=== PATIENT | male | born 1980 | race Caucasian/White ===

== ENCOUNTER 2017-05-11 21:51 | Emergency (ER) | END 2017-05-11 22:40 | disposition home or self-care (01) ==

== ENCOUNTER 2017-05-12 19:45 | Emergency (ER) | END 2017-05-12 21:24 | disposition home or self-care (01) ==

== ENCOUNTER 2018-08-04 23:34 | Inpatient (IN) | payer MEDICAID, OTHER ==
[~2018-08-04] VITALS: Ht 165.1 cm; Wt 81.8 kg
[~2018-08-04 23:34] MED LIST: BEN25 PO; CEPH-443 PO; CLIN300C10 PO; HYDR-4011 PO; SULF1TAB31 PO
[2018-08-04 23:40] VITALS: Ht 165.1 cm; Wt 81.8 kg
[2018-08-04] MEDS ORDERED: SOD CHLORIDE 0.9% 1,000 ML IV STA (23:48)
[2018-08-05] MEDS ORDERED: NA BICARBONATE 8.4% 50 ML SYG IV ONE (00:30)
[2018-08-05] MEDS ORDERED: ONDANSETRON 4 MG INJ IV PRN ×2 (03:00→03:30)
[2018-08-05] MEDS ORDERED: ACETAMINOPHEN 325 MG TAB PO PRN ×2 (03:00→03:30)
[2018-08-05] MEDS ORDERED: BISACODYL (EC) 5 MG TAB PO PRN (03:30)
[2018-08-05] MEDS ORDERED: NACL 0.9% 3 ML SYG IV SCH (03:30)
[2018-08-05] MEDS ORDERED: DOCUSATE SODIUM 100 MG CAP PO PRN (03:30)
--- NOTE | 2018-08-05 08:12 | HP ---
Date/Time of Note Date/Time of Note DATE: 08/05/18 TIME: 08:05 Assessment/Plan VTE Prophylaxis SCD applied (from Nsg): Yes Pharmacological prophylaxis: NA/contraindicated Pharm contraindication: low risk/ambulating Lines/Catheters IV Catheter Type (from Nrsg): Saline Lock Assessment/Plan Hospital Course This is a 38-year-old male being admitted to the telemetry floor for observation for: #1 acute encephalopathy: Likely toxic metabolic secondary to polysubstance use. Patient did report the use of Xanax as well as coffee and monster energy drinks. He is more arousable and awake and alert than when he originally was found by his . Will await urine drug screen. CT of the brain is negative for any acute abnormalities. #2 hypernatremia: Likely secondary to acute dehydration. We will put the patient on D5 half-normal saline.. Encourage diet when patient is able. #3 prediabetes: Check hemoglobin A 1C #4 obesity: Check hemoglobin A 1C, lipid panel, TSH #5 DVT GI prophylaxis: SCDs, no GI prophylaxis indicated further treatment strategy will be implemented as per the clinical course. Result Diagram: 08/05/18 0608/05/18 06 Results 24hrs Laboratory Tests Test 08/04/18 23:56 08/04/18 23:57 08/05/18 00:12 08/05/18 01:34 White Blood Count 7.3 Red Blood Count 4.53 L Hemoglobin 13.8 L Hematocrit 39.4 L Mean Corpuscular 87.0 Volume Mean Corpuscular 30.5 Hemoglobin Mean Corpuscular 35.0 Hemoglobin Concen t Red Cell 11.9 Distribution Width Platelet Count 187 Mean Platelet 10.3 Volume Immature 0.300 Granulocytes % Neutrophils % 56.9 Lymphocytes % 34.1 Monocytes % 8.3 Eosinophils % 0.1 Basophils % 0.3 Nucleated Red 0.0 Blood Cells % Immature 0.020 Granulocytes # Neutrophils # 4.1 Lymphocytes # 2.5 Monocytes # 0.6 Eosinophils # 0.0 Basophils # 0.0 Nucleated Red 0.0 Blood Cells # Urine Color SERENITY Urine Clarity SLIGHTLY CLOUDY A Urine pH 6.0 Urine Specific 1.030 [place] Urine Ketones TRACE A Urine Nitrite NEGATIVE Urine Bilirubin NEGATIVE Urine 1+ H Urobilinogen Urine Leukocyte NEGATIVE Esterase Urine Microscopic 0 RBC Urine Microscopic 2 WBC Urine Mucus FEW A Urine Hemoglobin NEGATIVE Urine Glucose NEGATIVE Urine Total 1+ H Protein Sodium Level 142 Potassium Level 3.8 Chloride Level 109 Carbon Dioxide 24 Level Anion Gap 9 Blood Urea 18 Nitrogen Creatinine 0.86 Est Glomerular > 60 Filtrat Rate mL/min Glucose Level 96 Calcium Level 9.6 Total Bilirubin 0.5 Direct Bilirubin 0.00 Indirect 0.5 Bilirubin Aspartate Amino 33 Transf (AST/SGOT) Alanine 27 Aminotransferase (ALT/SGPT) Alkaline 59 Phosphatase Troponin I 0.013 Total Protein 7.9 Albumin 4.7 Globulin 3.20 Albumin/Globulin 1.46 Ratio Salicylates Level < 1.0 L Urine Opiates NEGATIVE Screen Acetaminophen < 10.0 L Level Urine NEGATIVE Barbiturates Urine POSITIVE Amphetamines Screen Urine POSITIVE Benzodiazepines Screen Urine Cocaine NEGATIVE Screen Urine NEGATIVE Cannabinoids Ethyl Alcohol < 10.0 H Level POC Venous 0.8 Lactate Bedside Glucose 87 Test 08/05/18 03:35 08/05/18 06:00 08/05/18 06:01 Lactic Acid Level 1.1 1.2 White Blood Count 5.7 # Red Blood Count 4.52 L Hemoglobin 13.6 L Hematocrit 39.8 L Mean Corpuscular 88.1 Volume Mean Corpuscular 30.1 Hemoglobin Mean Corpuscular 34.2 Hemoglobin Concen t Red Cell 12.0 Distribution Width Platelet Count 172 Mean Platelet 9.9 Volume Immature 0.200 Granulocytes % Neutrophils % 49.5 Lymphocytes % 38.8 Monocytes % 10.6 Eosinophils % 0.7 Basophils % 0.2 Nucleated Red 0.0 Blood Cells % Immature 0.010 Granulocytes # Neutrophils # 2.8 Lymphocytes # 2.2 Monocytes # 0.6 Eosinophils # 0.0 Basophils # 0.0 Nucleated Red 0.0 Blood Cells # Sodium Level 147 H Potassium Level 3.9 Chloride Level 110 Carbon Dioxide 26 Level Anion Gap 11 Blood Urea 18 Nitrogen Creatinine 0.72 Est Glomerular > 60 Filtrat Rate mL/min Glucose Level 90 Hemoglobin A1c 5.4 Calcium Level 8.8 Magnesium Level 2.4 Total Bilirubin 0.7 Direct Bilirubin 0.00 Indirect 0.7 Bilirubin Aspartate Amino 23 Transf (AST/SGOT) Alanine 22 Aminotransferase (ALT/SGPT) Alkaline 59 Phosphatase Total Protein 7.1 Albumin 4.1 Globulin 3.00 Albumin/Globulin 1.36 Ratio Triglycerides 62 Level Cholesterol Level 190 LDL Cholesterol, 136 Calculated HDL Cholesterol 42 Cholesterol/HDL 4.5 Ratio Thyroid 2.710 Stimulating Hormone (TSH) HPI/ROS Admit Date/Time Admit Date/Time Hx of Present Illness Chief complaint: Altered mental status This is a 38-year-old male who was brought in via paramedics for altered mental status. He is accompanied by his . His reports that she saw him on the floor outside of the house near the car/alley almost nonresponsive. She states that she went up to him and he was mumbling and moaning. He had apparently gone out earlier with his friends. She called paramedics and patient was brought to the emergency department. Patient was able to follow minimal commands at that time when he arrived in the emergency department and was able to take his shirt off. He did report to the that he took Xanax. Upon my examination of the patient at the bedside the patient did appear to be more arousable and alert. He reported that he was with his friends and that he was drinking coffee, surrender he drinks, and Xanax. He denies any chest pain or shortness of breath. Denies any head trauma. Denies any headaches. Allergies: NKDA Medications: None ROS Const: As per HPI Eyes : No pain discharge or redness or change in visual acuity ENT: No pain, sore throat, congestion, congestion, dysphagia or discharge Respiratory: No shortness of breath, cough, sputum, wheezing, or pleuritic pain Cardiovascular: No chest pain, palpitation, PND, or edema GI : no change in appetite, abdominal pain, nausea, vomiting, diarrhea, constipation, or change in the color his stool Genitourinary: No dysuria, hematuria, flank pain , discharge or CVA tenderness Musculoskeletal: No joint pain, back pain, neck pain, restricted range of motion in neck or joints Skin: No rash, bruising or hives Neuro: As per HPI Endocrine: No polyuria, polydipsia, temperature intolerance Psych: As per HPI PMH/Family/Social Past Medical History Prediabetes Medications Current Medications Ondansetron HCl (Zofran Inj) 4 mg ER BRIDGE PRN IV NAUSEA/VOMITING; Start 08/05/18 at 03:00; Stop 08/06/18 at 02:59 Acetaminophen (Tylenol Tab) 650 mg ER BRIDGE PRN PO .MILD PAIN 1-3 OR TEMP; Start 08/05/18 at 03:00; Stop 08/06/18 at 02:59 IV Flush (NS 3 ml) 3 ml PER PROTOCOL IV ; Start 08/05/18 at 03:30 Ondansetron HCl (Zofran Inj) 4 mg Q6H PRN IV NAUSEA/VOMITING; Start 08/05/18 at 03:30 Acetaminophen (Tylenol Tab) 650 mg Q6H PRN PO .PAIN 1-3 OR TEMP; Start 08/05/18 at 03:30 Docusate Sodium (Colace) 100 mg Q12H PRN PO .CONSTIPATION; Start 08/05/18 at 03:30 Bisacodyl (Dulcolax) 5 mg DAILY PRN PO .CONSTIPATION; Start 08/05/18 at 03:30 Coded Allergies: No Known Allergy (Unverified , 08/05/18) Past Surgical History Past Surgical Hx: no surgical history Family History Significant Family History: no pertinent family hx Social History Smoking Status: Unknown if ever smoked Drug Use: other (Denies drug use) Exam/Review of Systems Vital Signs Vitals Vital Signs Date Temp Pulse Resp B/P (MAP) Pulse Ox O2 O2 Flow FiO2 Time Delivery Rate 08/05/18 98.1 58 14 108/73 100 Room Air 06:27 (85) Exam Exam General: Patient is currently lying in bed in no acute distress, he is arousable, but he does appear to be slightly altered. HEENT: Atraumatic, normocephalic. The pupils are equal, round and reactive. Extraocular motor are intact Neck: Supple with full range of motion. No rigidity or meningismus Chest: Nontender Lungs: Clear to auscultation bilaterally no crackles rales or wheezing Heart: Normal S1-S2, Regular rhythm and rate. No murmur, S3, or S4 Abdomen: Soft , nontender, nondistended , bowel sounds are present. No guarding no rebound tenderness , No masses or organomegaly. No costovertebral temporal angle mass Extremities: Normal to inspection, no edema no cyanosis Neurologic: Alert x2, arousable cranial nerves II through XII are intact, motor and sensory are intact, strength 5 out of 5 in bilateral upper and lower extremities. Psych: Not responding to any external stimuli. Additional Comments EKG: Sinus bradycardia with T wave inversions in V1 PROCEDURE: CT brain without contrast CLINICAL INDICATION: Altered mental status TECHNIQUE: A CT of the brain was performed utilizing axial sections from the skull base through the vertex without contrast. Sagittal and coronal images were also reformatted. DICOM images are available. One or more of the following dose reduction techniques were used: Automated exposure control, adjustment of the mA and/or kV according to patient size, use of iterative reconstruction technique. The exam CTDIvol = 38.54 mGy and DLP = 634.23 mGy-cm. COMPARISON: None available FINDINGS: No acute intracranial hemorrhage is identified. There is no mass effect or midline shift. No extra-axial fluid collection is seen. The ventricles and sulci are within normal limits for size and configuration. The density of the brain is within normal limits. [place]-white differentiation is preserved. The osseous structures are unremarkable. The mastoid air cells and visualized paranasal sinuses are clear. RPTAT:HIRAJR IMPRESSION: Unremarkable noncontrast CT of the brain. Maxi Valdivia Physician Date Time Electronically viewed and signed by Physician Riana on 08/05/2018 00:37 JR/ CC: LAZARA SALGADO [id number] PROCEDURE: XR Chest. CLINICAL INDICATION: Chest pain. Altered level of consciousness TECHNIQUE: Portable AP view of the chest was obtained. COMPARISON: None. FINDINGS: The cardiomediastinal silhouette is within normal limits. The lungs are clear. There is no evidence for pleural effusion, pneumothorax or pulmonary vascular congestion. The osseous structures are intact with no evidence for acute abnormality. RPTAT:HJJR IMPRESSION: No evidence for acute intrathoracic pathology. Physician Riana Date Time Electronically viewed and signed by Physician Riana on 08/05/2018 00:36 JR/ CC: LAZARA SALGADO [id number] BEBETO CHEN Aug 05, 2018 08:12
[2018-08-05] MEDS ORDERED: DEXTROSE 5%-0.45% NACL 1,000 ML IV SCH (08:30)
--- NOTE | 2018-08-05 13:58 | PDOCDIS ---
Discharge Instructions DIAGNOSIS Discharge Diagnosis Acute encephelopathy from Xanax CONDITION [id number] Patient Condition: [id number] Stable FOLLOW UP/APPOINTMENTS Follow-up Plan Avoid using drugs CLINTON TONY MD Aug 05, 2018 13:58
--- NOTE | 2018-08-05 14:01 | DS ---
Date/Time of Note Date/Time of Note DATE: 08/05/18 TIME: 13:59 Discharge Summary Admission/Discharge Info Admit Date/Time Discharge Date/Time Discharge Diagnosis Acute encephelopathy from Xanax Patient Condition: Stable Hospital Course Patient found to have acute encephelopathy from benzo overdose. He slept this off. Mental status returned to baseline. He denied suicidality. He felt back to normal and requested discharge home. Labs and imaging were unremarkable Home Meds Discontinued Scripts Diphenhydramine Hcl* (Benadryl*) 25 Mg Cap, 25 MG PO Q6, #30 CAP Prov:LAZARA CASTORENA PA-C 05/12/17 Clindamycin Hcl* (Clindamycin Hcl*) 300 Mg Capsule, 300 MG PO TID for 10 Days, #30 CAP Prov:LAZARA CASTORENA PA-C 05/12/17 Hydrocodone/Acetaminophen ([place] 5-325 Tablet) 1 Each Tablet, 1 TAB PO Q6H PRN for PAIN, #30 TAB Prov:ASHLEY PINZON PA-C 05/11/17 Sulfamethoxazole/Trimethoprim* (Bactrim Ds* Tablet) 1 Each Tablet, 1 TAB PO BID, #20 TAB Prov:ASHLEY PINZON PA-C 05/11/17 Cephalexin* (Keflex*) 500 Mg Capsule, 500 MG PO QID for 10 Days, CAP Prov:ASHLEY PINZON PA-C 05/11/17 Follow-up Plan Avoid using drugs Primary Care Provider Care Physician No Primary Pending Labs Laboratory Tests Test 08/04/18 23:56 08/04/18 23:57 08/05/18 00:12 08/05/18 01:34 White Blood 7.3 Count 10^3/ul (4.8-10 .8) Red Blood 4.53 Count 10^6/ul (4.70-6 .10) Hemoglobin 13.8 g/dl (14.0-18.0 ) Hematocrit 39.4 % (42.0-52.0) Mean 87.0 Corpuscular fl (82.0-101.0) Volume Mean 30.5 Corpuscular pg (29.0-33.0) Hemoglobin Mean 35.0 Corpuscular g/dl (32.0-37.0 Hemoglobin Conc ) ent Red Cell 11.9 Distribution % (11.5-14.5) Width Platelet Count 187 10^3/UL (140-41 5) Mean Platelet 10.3 Volume fl (7.4-10.4) Immature 0.300 Granulocytes % % (0.001-0.429) Neutrophils % 56.9 % (39.0-77.0) Lymphocytes % 34.1 % (15.0-51.0) Monocytes % 8.3 % (0.0-11.0) Eosinophils % 0.1 % (0.0-7.0) Basophils % 0.3 % (0.0-2.0) Nucleated Red 0.0 Blood Cells % /100WBC (0.0-0. 0) Immature 0.020 Granulocytes # 10^3/ul (0.0-0. 031) Neutrophils # 4.1 10^3/ul (1.6-7. 5) Lymphocytes # 2.5 10^3/ul (0.8-2. 9) Monocytes # 0.6 10^3/ul (0.3-0. 9) Eosinophils # 0.0 10^3/ul (0.0-0. 5) Basophils # 0.0 10^3/ul (0.0-0. 1) Nucleated Red 0.0 Blood Cells # 10^3/ul (0.0-0. 0) Urine Color SERENITY (YELLOW) Urine Clarity SLIGHTLY CLOUD Y (CLEAR) Urine pH 6.0 (5.0-9.0) Urine Specific 1.030 (1.003-1 [place] .030) Urine Ketones TRACE mg/dL (NEGATIV E) Urine Nitrite NEGATIVE mg/dL (NEGATIV E) Urine NEGATIVE Bilirubin mg/dL (NEGATIV E) Urine 1+ Urobilinogen mg/dL (NEGATIV E) Urine Leukocyte NEGATIVE Yeison/u Esterase l Urine 0 /HPF (0-5) Microscopic RBC Urine 2 /HPF (0-5) Microscopic WBC Urine Mucus FEW /HPF (NONE SEEN) Urine NEGATIVE Hemoglobin mg/dL (NEGATIV E) Urine Glucose NEGATIVE mg/dL (NEGATIV E) Urine Total 1+ Protein mg/dl (NEGATIV E) Sodium Level 142 mmol/L (135-14 4) Potassium 3.8 Level mmol/L (3.5-5. 1) Chloride Level 109 mmol/L (97-110 ) Carbon Dioxide 24 Level mmol/L (21-31) Anion Gap 9 (5-13) Blood Urea 18 Nitrogen mg/dl (7-20) Creatinine 0.86 mg/dl (0.61-1. 24) Est Glomerular > 60 Filtrat mL/min (>60) Rate mL/min Glucose Level 96 mg/dl (70-220) Calcium Level 9.6 mg/dl (8.4-10. 2) Total 0.5 Bilirubin mg/dl (0.2-1.3 ) Direct 0.00 Bilirubin mg/dl (0.00-0. 20) Indirect 0.5 Bilirubin mg/dl (0-1.1) Aspartate Amino 33 Transf (AST/SGO IU/L (15-46) T) Alanine 27 Aminotransferas IU/L (13-69) e (ALT/SGPT) Alkaline 59 Phosphatase IU/L (42-121) Troponin I 0.013 ng/ml (0.000-0 .120) Total Protein 7.9 g/dl (6.1-8.1) Albumin 4.7 g/dl (3.3-4.9) Globulin 3.20 g/dl (1.3-3.2) Albumin/Globuli 1.46 n Ratio Salicylates < 1.0 Level mg/dl (5.0-30. 0) Urine Opiates NEGATIVE (NEGA Screen TIVE) Acetaminophen < 10.0 Level ug/ml (10.0-30 .0) Urine NEGATIVE (NEGA Barbiturates TIVE) Urine POSITIVE (NEGA Amphetamines TIVE) Screen Urine POSITIVE (NEGA Benzodiazepines TIVE) Screen Urine Cocaine NEGATIVE (NEGA Screen TIVE) Urine NEGATIVE (NEGA Cannabinoids TIVE) Ethyl Alcohol < 10.0 Level mg/dl (0-0) POC Venous 0.8 Lactate mmol/L (0.5-2. 0) Bedside 87 Glucose mg/dL (70-220) Test 08/05/18 03:35 08/05/18 06:00 08/05/18 06:01 Lactic Acid 1.1 1.2 Level mmol/L (0.5-2.0 mmol/L (0.5-2. ) 0) White Blood 5.7 Count 10^3/ul (4.8-1 0.8) Red Blood 4.52 Count 10^6/ul (4.70- 6.10) Hemoglobin 13.6 g/dl (14.0-18. 0) Hematocrit 39.8 % (42.0-52.0) Mean 88.1 Corpuscular fl (82.0-101.0 Volume ) Mean 30.1 Corpuscular pg (29.0-33.0) Hemoglobin Mean 34.2 Corpuscular g/dl (32.0-37. Hemoglobin Conc 0) ent Red Cell 12.0 Distribution % (11.5-14.5) Width Platelet Count 172 10^3/UL (140-4 15) Mean Platelet 9.9 Volume fl (7.4-10.4) Immature 0.200 Granulocytes % % (0.001-0.429 ) Neutrophils % 49.5 % (39.0-77.0) Lymphocytes % 38.8 % (15.0-51.0) Monocytes % 10.6 % (0.0-11.0) Eosinophils % 0.7 % (0.0-7.0) Basophils % 0.2 % (0.0-2.0) Nucleated Red 0.0 Blood Cells % /100WBC (0.0-0 .0) Immature 0.010 Granulocytes # 10^3/ul (0.0-0 .031) Neutrophils # 2.8 10^3/ul (1.6-7 .5) Lymphocytes # 2.2 10^3/ul (0.8-2 .9) Monocytes # 0.6 10^3/ul (0.3-0 .9) Eosinophils # 0.0 10^3/ul (0.0-0 .5) Basophils # 0.0 10^3/ul (0.0-0 .1) Nucleated Red 0.0 Blood Cells # 10^3/ul (0.0-0 .0) Sodium Level 147 mmol/L (135-14 4) Potassium 3.9 Level mmol/L (3.5-5. 1) Chloride Level 110 mmol/L (97-110 ) Carbon Dioxide 26 Level mmol/L (21-31) Anion Gap 11 (5-13) Blood Urea 18 Nitrogen mg/dl (7-20) Creatinine 0.72 mg/dl (0.61-1. 24) Est Glomerular > 60 Filtrat mL/min (>60) Rate mL/min Glucose Level 90 mg/dl (70-220) Hemoglobin A1c 5.4 % (0-5.9) Calcium Level 8.8 mg/dl (8.4-10. 2) Magnesium 2.4 Level mg/dl (1.7-2.5 ) Total 0.7 Bilirubin mg/dl (0.2-1.3 ) Direct 0.00 Bilirubin mg/dl (0.00-0. 20) Indirect 0.7 Bilirubin mg/dl (0-1.1) Aspartate Amino 23 Transf (AST/SGO IU/L (15-46) T) Alanine 22 Aminotransferas IU/L (13-69) e (ALT/SGPT) Alkaline 59 Phosphatase IU/L (42-121) Total Protein 7.1 g/dl (6.1-8.1) Albumin 4.1 g/dl (3.3-4.9) Globulin 3.00 g/dl (1.3-3.2) Albumin/Globuli 1.36 n Ratio Triglycerides 62 Level mg/dl (0-149) Cholesterol 190 Level mg/dl (100-200 ) LDL 136 mg/dl Cholesterol, Calculated HDL 42 Cholesterol mg/dl (28-63) Cholesterol/HDL 4.5 RATIO Ratio Thyroid 2.710 Stimulating MIU/L (0.465-4 Hormone (TSH) .680) CLINTON TONY MD Aug 05, 2018 14:01
[2018-08-05 14:16] VITALS: BP 110/65; PULSE 60; RESP 14
== END 2018-08-05 13:57 | disposition home or self-care (01) | DRG 917 ==
LOC: E/R 23:34 → 6WM 08-05 03:01 → SUATTDRO 08-05 10:21 → E/R 08-05 15:07
PROVIDERS: ADMIT Internal Medicine; ATTEND Internal Medicine
DX: T42.4X1A Poisoning by benzodiazepines, accidental (unintentional), initial encounter (principal); G92 Toxic encephalopathy; E87.0 Hyperosmolality and hypernatremia; E86.0 Dehydration; R73.03 Prediabetes; E66.9 Obesity, unspecified
CPT/HCPCS: 70450; 71045; 80053; 80061; 80307; 81001; 82962; 83036; 83605; 83735; 84443; 84484; 85025; 93005; J7030; J7042

== ENCOUNTER 2018-09-06 02:01 | Emergency (ER) | payer SELFPAY ==
[~2018-09-06] VITALS: Ht 165.1 cm; Wt 80.0 kg
[2018-09-06 02:03] VITALS: Ht 165.1 cm; Wt 80.0 kg
[2018-09-06] MEDS ORDERED: SOD CHLORIDE 0.9% 1,000 ML IV STA ×2 (02:26→04:02)
[2018-09-06] MEDS ORDERED: LORAZEPAM 2 MG INJ IV ONE (02:30)
[2018-09-06] MEDS ORDERED: ONDANSETRON 4 MG INJ IV STA (03:12)
--- NOTE | 2018-09-06 05:07 | ERD ---
ER Documentation Chief Complaint Chief Complaint Pt snorted meth 1 hour ago, now SOB and anxious HPI This is a 38-year-old male who said he snorted meth at 1 PM. His brought him in because he burst into the bedroom just prior to arrival in a florid panic attack with hyperventilation with carpal spasm, sense of impending doom and anxiety. The patient said he felt fine this evening at dinnertime and was watching TV when the symptoms suddenly hit him. He said he felt like he was going to pass out. He had no chest pain. Currently states he feels very anxious but the sense of impending doom ROS All systems reviewed and are negative except as per history of present illness. Medications Home Meds No Active Prescriptions or Reported Meds Allergies Allergies: Coded Allergies: No Known Allergy (Unverified , 08/05/18) PMhx/Soc History of Surgery: No Anesthesia Reaction: No Hx Neurological Disorder: No Hx Respiratory Disorders: No Hx Cardiac Disorders: No Hx Psychiatric Problems: No Hx Miscellaneous Medical Probl: Yes (left knee swelling, prediabetic not on meds) Hx Alcohol Use: Yes (occasionally) Hx Substance Use: Yes (crystal meth, last used 09/05/2018) Hx Tobacco Use: No Smoking Status: Never smoker FmHx Family History: No coronary disease Physical Exam Vitals Vital Signs Date Temp Pulse Resp B/P (MAP) Pulse Ox O2 O2 Flow FiO2 Time Delivery Rate 09/06/18 57 20 135/87 98 Room Air 04:00 (103) 09/06/18 59 22 116/55 99 Room Air 03:30 (75) 09/06/18 61 13 126/77 100 Room Air 03:00 (93) 09/06/18 79 24 124/83 100 Room Air 02:30 (97) 09/06/18 98.0 78 24 124/85 100 Room Air 02:20 (98) 09/06/18 98.0 84 40 107/60 100 02:03 (76) Physical Exam Const: Well-developed, well-nourished Head: Atraumatic, normocephalic Eyes: Normal Conjunctiva, PERRLA, EOMI, normal sclera, no nystagmus ENT: Normal External Ears, Nose and Mouth, moist mucus membranes. Neck: Full range of motion. No meningismus, no lymphadenopathy. Resp: Clear to auscultation bilaterally, no wheezing, rhonchi, rales Cardio: Regular rate and rhythm, no murmurs, S1 S2 present Abd: Soft, non tender x 4, non distended. Normal bowel sounds, no guarding or rebound, no pulsitile abdominal masses or bruits Skin: No petechiae or rashes, no ecchymosis , no maculopapular rash Back: No midline or flank tenderness Ext: No cyanosis, or edema, FROM x 4, normal inspection, neurovascularly intact x 4 Neur: Awake and alert, STR 5/5 x 4, sensation intact x 4, no focal findings, cerebellum intact Psych: Anxious Result Diagram: 09/06/18 0241 09/06/18 0241 Results 24 hrs Laboratory Tests Test 09/06/18 02:41 White Blood Count 12.4 10^3/ul Red Blood Count 5.66 10^6/ul Hemoglobin 16.8 g/dl Hematocrit 48.0 % Mean Corpuscular Volume 84.8 fl Mean Corpuscular Hemoglobin 29.7 pg Mean Corpuscular Hemoglobin Concent 35.0 g/dl Red Cell Distribution Width 11.7 % Platelet Count 210 10^3/UL Mean Platelet Volume 10.1 fl Immature Granulocytes % 0.400 % Neutrophils % 72.7 % Lymphocytes % 19.5 % Monocytes % 7.0 % Eosinophils % 0.2 % Basophils % 0.2 % Nucleated Red Blood Cells % 0.0 /100WBC Immature Granulocytes # 0.050 10^3/ul Neutrophils # 9.0 10^3/ul Lymphocytes # 2.4 10^3/ul Monocytes # 0.9 10^3/ul Eosinophils # 0.0 10^3/ul Basophils # 0.0 10^3/ul Nucleated Red Blood Cells # 0.0 10^3/ul Sodium Level 140 mmol/L Potassium Level 3.5 mmol/L Chloride Level 103 mmol/L Carbon Dioxide Level 20 mmol/L Anion Gap 17 Blood Urea Nitrogen 18 mg/dl Creatinine 1.12 mg/dl Est Glomerular Filtrat Rate mL/min > 60 mL/min Glucose Level 182 mg/dl Calcium Level 11.0 mg/dl Troponin I < 0.012 ng/ml Current Medications Medications Dose Sig/Osorio Start Time Status Last (Trade) Ordered Route PRN Stop Time Admin Dose Reason Admin Sodium 1,000 ml @ Q1H STAT 09/06/18 DC 09/06/18 Chloride 1,000 mls/hr IV 02:26 02:54 09/06/18 03:25 Lorazepam 1 mg ONCE ONCE 09/06/18 DC 09/06/18 (Ativan) IV 02:30 02:54 09/06/18 02:31 Ondansetron 4 mg ONCE STAT 09/06/18 DC 09/06/18 HCl (Zofran IV 03:12 03:38 Inj) 09/06/18 03:13 Sodium 1,000 ml @ Q1H STAT 09/06/18 DC 09/06/18 Chloride 1,000 mls/hr IV 04:02 04:56 09/06/18 05:01 Procedures/MDM EKG: Rate/Rhythm: Normal Sinus Rhythm,NL intervals QRS, ST, QT: NORMAL [place], QRS, QT] Impression: NORMAL EKG [place] [id number] Radiology Main Line: [phone] DIAGNOSTIC IMAGING REPORT Patient: EDILBERTO LANDAVERDE : 1980 Age: 38 Sex: M MR #: [id number] DOS: 09/06/18 0226 Ordering MD: MARTI VALENTIN DO Location: E/R Room/Bed: PROCEDURE: Single view chest. CLINICAL INDICATION: Chest pain TECHNIQUE: Single view of the chest was obtained COMPARISON: None FINDINGS: Monitoring leads overlie the chest. There is no airspace consolidation or focal infiltrate. No pleural effusion or pneumothorax. Cardiac silhouette and mediastinal contours are unremarkable. Pulmonary vasculature appears normal. Regional bones are grossly unremarkable. IMPRESSION: No acute cardiopulmonary abnormality. RPTAT: HJ[facility] Physician Dani Date Time Electronically viewed and signed by Physician Dani on 09/06/2018 02:44 xB/ CC: MARTI VALENTIN DO [id number] Patient is feeling much better. Patient had a panic attack. He is feeling much better after medication he wants to go home and sleep. His CT head is pending if is negative he will go home Departure Diagnosis: Primary Impression: Anxiety reaction Additional Impression: Substance abuse Condition: Stable MARTI VALENTIN DO Sep 06, 2018 05:07
[2018-09-06 05:30] VITALS: BP 117/74; PULSE 61; RESP 18
== END 2018-09-06 05:44 | disposition home or self-care (01) ==
LOC: E/R 02:01
DX: F41.1 Generalized anxiety disorder (principal); F15.10 Other stimulant abuse, uncomplicated; R40.2142 Coma scale, eyes open, spontaneous, at arrival to emergency department; R40.2252 Coma scale, best verbal response, oriented, at arrival to emergency department; R40.2362 Coma scale, best motor response, obeys commands, at arrival to emergency department; R51 Headache
CPT/HCPCS: 36415; 70450; 71045; 80048; 84484; 85025; 93005; 96361; 96374; 96375; 99285; J2060; J2405; J7030